=== PATIENT | male | born 1980 | race Caucasian/White ===

== ENCOUNTER 2019-07-09 07:47 | Emergency (ER) | payer MEDICAID, OTHER ==
[~2019-07-09] VITALS: Ht 175.3 cm; Wt 81.0 kg
[2019-07-09 09:53] VITALS: BP 127/92
== END 2019-07-09 09:56 | disposition home or self-care (01) ==
LOC: ER 07:48
DX: Z02.89 Encounter for other administrative examinations (principal); R10.9 Unspecified abdominal pain; Z59.0 Homelessness
CPT/HCPCS: 99281